=== PATIENT | female | born 1990 | race Caucasian/White ===

== ENCOUNTER 2017-02-12 23:29 | Emergency (ER) | payer OTHER ==
[2017-02-13 00:48] LABS: Hematocrit 41 % (35-47); Hemoglobin 13.6 g/dl (12.0-16.0); Mean Corpuscular HGB Conc 34 g/dl (31-36); Mean Corpuscular Hemoglobin 33 pg (27-31); Mean Corpuscular Volume 97 fL (80-97); Mean Platelet Volume 10 um3 (7.4-10.4); Red Blood Count 4.17 10^6/ul (4.0-5.4); Red Cell Distribution Width 13 % (10.5-15); White Blood Count 9.1 10^3/ul (3.5-10.8)
[2017-02-13] MEDS: NS 0.9% 1000 ML* 2,000 ML IV ONE ×2 (00:52→00:55)
[2017-02-13] MEDS ORDERED: Adenosine SYRINGE* 6 MG/2 ML IV PUSH ONE (00:58)
[2017-02-13] MEDS ORDERED: Adenosine* 3 MG/ML VIAL IV PUSH ONE (00:58)
[2017-02-13] MEDS ORDERED: Adenosine* 3 MG/ML VIAL ONE (00:58)
[2017-02-13 01:00] LABS: Albumin 4.6 g/dL (3.2-5.2); BUN/Creatinine Ratio 35.8 (8-20); EGFR African American 92.2 (>60); EGFR Non-African American 71.7 (>60); Globulin 2.7 g/dL (2-4); Magnesium 2.1 mg/dL (1.9-2.7); Potassium 4.1 mmol/L (3.5-5.0); Total Bilirubin 0.3 mg/dL (0.2-1.0); Total Protein 7.3 g/dL (6.4-8.9)
[2017-02-13 01:02] LABS: Troponin I 0.01 ng/mL (<0.04)
[2017-02-13 01:18] LABS: TSH (Thyroid Stimulating Horm) 5.18 mcIU/mL (0.34-5.60)
--- NOTE | 2017-02-13 02:27 | ED ---
I, Oh,Francois, scribed for Francesco Ham MD on 02/13/17 at 0027 . Palpitations / Dysrhythmia - HPI Summary HPI Summary: This 26 y/o female presents to ED for racing palpitation since 1200 PM ashley. Pt had just come back from 40-minute jogging and drinking water at time of onset. Pt states that she was feeling fine during the run. HR in 160s is noted at time of initial evaluation. Positive lightheaded dizziness, SOB, and chest tightness. PMHx does not include any known afib or SVT, but pt reports prior history of transient palpitation. Ashley's episode was different from her usual episodes in that it lasts a lot longer. Other PMHx includes eating disorder. Pt denies any use of diuretics. Positive caffeine consumption via caffe mocha this morning. FHx is positive for PAC to mother. - History of Current Complaint Chief Complaint: EDDysrhythmPalp Time Seen by Provider: 02/13/17 00:10 Hx Obtained From: Patient, Medical Records Onset/Duration: Sudden Onset, Still Present Timing: Constant Character: Fast Aggravating: Nothing Alleviating: Nothing Associated Signs & Symptoms: Lightheadedness - Allergy/Home Medications Allergies/Adverse Reactions: Allergies Allergy/AdvReac Type Severity Reaction Status Date / Time No Known Allergies Allergy Verified 11/28/15 17:36 PMH/Surg Hx/FS Hx/Imm Hx Endocrine/Hematology History: Denies: Hx Diabetes, Hx Thyroid Disease Cardiovascular History: Denies: Hx Hypertension Respiratory History: Denies: Hx Asthma, Hx Chronic Obstructive Pulmonary Disease (COPD) GI History: Denies: Hx Ulcer Psychiatric History: Reports: Hx Eating Disorder - Surgical History Surgery Procedure, Year, and Place: WISDOM TEETH Infectious Disease History: No Infectious Disease History: Denies: Hx Hepatitis, Hx Human Immunodeficiency Virus (HIV), History Other Infectious Disease, Traveled Outside the [place] in Last 30 Days - Family History Known Family History: Positive: Cardiac Disease - Positive PAC to mother - Social History Alcohol Use: None Hx Substance Use: No Substance Use Type: Reports: None Hx Tobacco Use: No Smoking Status (MU): Never Smoked Tobacco Review of Systems Negative: Fever, Chills Positive: Palpitations - racing palpitation, Chest Pain - chest tightness Positive: Shortness Of Breath - intermittent, resolved All Other Systems Reviewed And Are Negative: Yes Physical Exam - Summary Physical Exam Summary: The patient is well-nourished in no acute distress and in no acute pain. The skin is warm and diaphoretic. HEENT: The head is normocephalic and atraumatic. The pupils are equal and reactive. The conjunctivae are clear and without drainage. Nares are patent and without drainage. Mouth reveals moist mucous membranes and the throat is without erythema and exudate. The external ears are intact. The ear canals are patent and without drainage. The tympanic membranes are intact. Negative Exophthalmos of the eyes. Neck is supple with full range of motion and non-tender. There are no carotid bruits. There is no neck vein distension. Respiratory: Chest is non-tender. Lungs are clear to auscultation and breath sounds are symmetrical and equal. Cardiovascular: Heart rate is tachy, unresolved with carotid massage. There is no murmur or rub auscultated. There is no peripheral edema and pulses are symmetrical and equal. Abdomen: The abdomen is soft and non-tender. There are normal bowel sounds heard in all four quadrants and there is no organomegaly palpated. Musculoskeletal: There is no back pain noted. Extremities are non-tender with full range of motion. There is good capillary refill. There is no peripheral edema or calf tenderness elicited. Neurological: Patient is alert and oriented to person, place and time. The patient has symmetrical motor strength in all four extremities. Cranial nerves are grossly intact. Deep tendon reflexes are symmetrical and equal in all four extremities. Psychiatric: The patient has an appropriate affect and does not exhibit any anxiety or depression. Triage Information Reviewed: Yes Vital Signs On Initial Exam: Initial Vitals Temp Pulse Resp BP Pulse Ox 98 F 180 20 120/89 100 02/12/17 23:30 02/12/17 23:30 02/12/17 23:30 02/12/17 23:30 02/12/17 23:30 Vital Signs Reviewed: Yes - Beti Coma Scale Coma Scale Total: 15 Diagnostics - Vital Signs Vital Signs Temp Pulse Resp BP Pulse Ox 02/12/17 23:59 150 02/12/17 23:52 98.7 F 153 18 123/76 99 02/12/17 23:30 98 F 180 20 120/89 100 - Laboratory Lab Results: Lab Results 02/13/17 02/13/17 02/13/17 Range/Units 00:25 00:25 00:25 WBC 9.1 (3.5-10.8) 10^3/ul RBC 4.17 (4.0-5.4) 10^6/ul Hgb 13.6 (12.0-16.0) g/dl Hct 41 (35-47) % MCV 97 (80-97) fL MCH 33 H (27-31) pg MCHC 34 (31-36) g/dl RDW 13 (10.5-15) % Plt Count 238 (150-450) 10^3/ul MPV 10 (7.4-10.4) um3 Neut % (Auto) 63.1 (38-83) % Lymph % (Auto) 26.5 (25-47) % [place] % (Auto) 7.9 (1-9) % Eos % (Auto) 1.3 (0-6) % Baso % (Auto) 1.2 (0-2) % Absolute Neuts (auto) 5.8 (1.5-7.7) 10^3/ul Absolute Lymphs (auto) 2.4 (1.0-4.8) 10^3/ul Absolute Monos (auto) 0.7 (0-0.8) 10^3/ul Absolute Eos (auto) 0.1 (0-0.6) 10^3/ul Absolute Basos (auto) 0.1 (0-0.2) 10^3/ul Absolute Nucleated RBC 0 10^3/ul Nucleated RBC % 0 D-Dimer, Quantitative (Less Than 230) ng/mL Sodium 138 (133-145) mmol/L Potassium 4.1 (3.5-5.0) mmol/L Chloride 104 (101-111) mmol/L Carbon Dioxide 28 (22-32) mmol/L Anion Gap 6 (2-11) mmol/L BUN 34 H (6-24) mg/dL Creatinine 0.95 (0.51-0.95) mg/dL Est GFR ( Amer) 92.2 (>60) Est GFR (Non-Af Amer) 71.7 (>60) BUN/Creatinine Ratio 35.8 H (8-20) Glucose 108 H (70-100) mg/dL Lactic Acid 1.0 (0.5-2.0) mmol/L Calcium 10.0 (8.6-10.3) mg/dL Magnesium 2.1 (1.9-2.7) mg/dL Total Bilirubin 0.30 (0.2-1.0) mg/dL AST 27 (13-39) U/L ALT 17 (7-52) U/L Alkaline Phosphatase 62 (34-104) U/L Troponin I 0.01 (<0.04) ng/mL Total Protein 7.3 (6.4-8.9) g/dL Albumin 4.6 (3.2-5.2) g/dL Globulin 2.7 (2-4) g/dL Albumin/Globulin Ratio 1.7 (1-3) TSH 5.18 (0.34-5.60) mcIU/mL 02/13/17 Range/Units 00:25 WBC (3.5-10.8) 10^3/ul RBC (4.0-5.4) 10^6/ul Hgb (12.0-16.0) g/dl Hct (35-47) % MCV (80-97) fL MCH (27-31) pg MCHC (31-36) g/dl RDW (10.5-15) % Plt Count (150-450) 10^3/ul MPV (7.4-10.4) um3 Neut % (Auto) (38-83) % Lymph % (Auto) (25-47) % [place] % (Auto) (1-9) % Eos % (Auto) (0-6) % Baso % (Auto) (0-2) % Absolute Neuts (auto) (1.5-7.7) 10^3/ul Absolute Lymphs (auto) (1.0-4.8) 10^3/ul Absolute Monos (auto) (0-0.8) 10^3/ul Absolute Eos (auto) (0-0.6) 10^3/ul Absolute Basos (auto) (0-0.2) 10^3/ul Absolute Nucleated RBC 10^3/ul Nucleated RBC % D-Dimer, Quantitative < 200 (Less Than 230) ng/mL Sodium (133-145) mmol/L Potassium (3.5-5.0) mmol/L Chloride (101-111) mmol/L Carbon Dioxide (22-32) mmol/L Anion Gap (2-11) mmol/L BUN (6-24) mg/dL Creatinine (0.51-0.95) mg/dL Est GFR ( Amer) (>60) Est GFR (Non-Af Amer) (>60) BUN/Creatinine Ratio (8-20) Glucose (70-100) mg/dL Lactic Acid (0.5-2.0) mmol/L Calcium (8.6-10.3) mg/dL Magnesium (1.9-2.7) mg/dL Total Bilirubin (0.2-1.0) mg/dL AST (13-39) U/L ALT (7-52) U/L Alkaline Phosphatase (34-104) U/L Troponin I (<0.04) ng/mL Total Protein (6.4-8.9) g/dL Albumin (3.2-5.2) g/dL Globulin (2-4) g/dL Albumin/Globulin Ratio (1-3) TSH (0.34-5.60) mcIU/mL Result Diagrams: 02/13/17 00:25 02/13/17 00:25 Lab Statement: Any lab studies that have been ordered have been reviewed, and results considered in the medical decision making process. - EKG 2340 Cardiac Rate: NL, Tachycardia EKG Rhythm: Sinus Tachycardia - 157 bpm 0117 Cardiac Rate: NL - 85 bpm EKG Rhythm: Sinus Rhythm Re-Evaluation - Re-Evaluation First Eval Re-Evaluation Time: 00:57 Comment: Tachycardia in 150s persists after NS treatment. Adenosine ordered, Dr. Talley consulted. Dr. Ham is in room to re-evaluate and update pt on plan of care involving adenosine push. Second Eval Re-Evaluation Time: 01:14 Comment: Pt cardioconverted after adenosine push 6 mg followed by 12 mg. Third Eval Re-Evaluation Time: 02:17 Comment: Dr. Ham in room to update pt on repeat EKG and blood work. Plan of care involving outpatient f/u is discussed, and pt is agreeable. Discussed medication option involving low dose toprol. Pt at this moment refuses medication and states that she wants to see senior game designer. Pt is instructed to avoid caffeine and keep herself well hydrated during exercise. Course/Dx - Course Assessment/Plan: This 26 y/o female presents to ED for racing palpitation since 2300 PM tontrupti. Pt had just finished her jogging and drinking water at time of onset. Pt reports prior episodes of palpitation, but states that they were never this long-lasting as tonight's one. No known PMHx of SVT. HR of 160 was noted at time of initial evaluation. Pt cardioverted after adenosine push 6mg followed by 12 mg. Repeat EKG at 0117 was noted with NSR. Plan of care involving low dose Toprol was discussed with pt, but she refuses at this moment and expresses desire to f/u with senior game designer. Pt is advised to avoid caffeine and to keep herself well hydrated before and during exercise. - Diagnoses Differential Diagnosis/HQI/PQRI: Positive: Paroxymal SVT, Other - a-fib, sinus tachycardia, dehydration Provider Diagnoses: SVT (supraventricular tachycardia) - Physician Notifications Discussed Care Of Patient With: Efrain Talley Time Discussed With Above Provider: 00:57 - Critical Care Time Critical Care Time: 30-74 min Discharge - Discharge Plan Condition: Stable Disposition: HOME Patient Education Materials: Supraventricular Tachycardia (ED) Referrals: Pratima Magallanes MD [Primary Care Provider] - Ki Correa DO [Medical Doctor] - 2 Days Additional Instructions: Please be sure to follow up with Dr. Correa to discuss medical intervention vs. ablation. The documentation as recorded by the Eduardo crowe Soohyun accurately reflects the service I personally performed and the decisions made by me, Francesco Ham MD.
[2017-02-13 02:42] VITALS: BP 115/73
== END 2017-02-13 02:40 | disposition home or self-care (01) ==
LOC: ED 23:29
DX: I47.1 Supraventricular tachycardia (principal); R00.2 Palpitations; R07.9 Chest pain, unspecified; R06.02 Shortness of breath
CPT/HCPCS: 36415; 80053; 83605; 83735; 84443; 84484; 85025; 85379; 93005; 96374; 99284; J0153